=== PATIENT | female | born 1950 | race Caucasian/White ===

== ENCOUNTER 2016-12-03 03:47 | Emergency (ER) | payer OTHER ==
[~2016-12-03] VITALS: Ht 165.1 cm; Wt 100.0 kg
[2016-12-03] MEDS ORDERED: SERTRALINE HCL100 MG PO (03:55)
[2016-12-03] MEDS ORDERED: OMEPRAZOLE20 MG PO (03:55)
[2016-12-03] MEDS ORDERED: DICLOFENAC SODI75 MG PO (03:55)
[2016-12-03] MEDS ORDERED: TRAMADOL HCL50 MG PO (03:56)
[2016-12-03] MEDS ORDERED: LO-DOSE ASPIRIN81 M1 PO (03:56)
[2016-12-03] MEDS ORDERED: CRESTOR40 MG PO (03:57)
[2016-12-03] MEDS ORDERED: GABAPENTIN300 MG PO (03:57)
[2016-12-03] MEDS ORDERED: PERCOCET 5/31 TABLET PO (04:18)
[2016-12-03 04:43] VITALS: BP 167/81
== END 2016-12-03 04:44 | disposition home or self-care (01) ==
LOC: EXP 03:47 → EME 03:47 → EXP 04:44
DX: M25.562 Pain in left knee (principal); G89.29 Other chronic pain; I10 Essential (primary) hypertension; Z79.82 Long term (current) use of aspirin
CPT/HCPCS: 73564; 99281; 99284; J1885

== ENCOUNTER 2017-05-05 14:48 | Emergency (ER) | payer OTHER ==
[~2017-05-05] VITALS: Ht 152.4 cm; Wt 88.2 kg
[~2017-05-05 14:48] MED LIST: CRESTOR40 MG PO; DICLOFENAC SODI75 MG PO; GABAPENTIN300 MG PO; LO-DOSE ASPIRIN81 M1 PO; OMEPRAZOLE20 MG PO; PERCOCET 5/31 TABLET PO; SERTRALINE HCL100 MG PO; TRAMADOL HCL50 MG PO
[2017-05-05 15:59] LABS: HEMATOCRIT 34.5 % (36.0-46.0); HEMOGLOBIN 11.2 G/DL (11.9-15.5); MCH 25.6 PG (29.0-34.0); MCHC 32.5 G/DL (30.0-36.0); MCV 78.9 FL (83-99); PLATELET COUNT 220 K/uL (156-360); RBC DIS.WIDTH-CV 16.7 % (11.8-14.6); RBC DIS.WIDTH-SD 47.8 % (39-53); RED BLOOD COUNT 4.37 M/uL (3.80-5.20); WHITE BLOOD COUNT 5.1 K/uL (4.1-10.2)
[2017-05-05 16:11] LABS: ALBUMIN 4.2 g/dL (3.2-4.8)
[2017-05-05 16:12] LABS: CHLORIDE 106 mEq/L (99-109); POTASSIUM 3.4 mEq/L (3.7-5.4); SODIUM 140 mEq/L (136-147)
[2017-05-05 16:14] LABS: GLUCOSE 128 mg/dL (70-99); TOTAL PROTEIN 6.8 g/dL (6.4-8.3)
[2017-05-05 16:16] LABS: TOTAL BILIRUBIN 0.2 mg/dL (0.0-1.0)
[2017-05-05 16:17] LABS: ALKALINE PHOSPHATASE 95 IU/L (3-129)
[2017-05-05 16:18] LABS: CREATININE 0.9 mg/dL (0.6-1.3); GFR ESTIMATE (CALCULATED) > 59 mL/min/
[2017-05-05 16:19] LABS: AST (GOT) 19 IU/L (2-34); UREA NITROGEN (BUN) 9 mg/dL (9-23)
[2017-05-05 16:20] LABS: ALT (GPT) 16 IU/L (3-49)
[2017-05-05 16:21] LABS: LIPASE 12 U/L (1.0-51.0)
[2017-05-05 18:24] LABS: APPEARANCE CLOUDY ((CLEAR)); BILIRUBIN NEGATIVE; BLOOD NEGATIVE; GLUCOSE (STRIP) NEGATIVE; KETONES NEGATIVE; LEUKOCYTES LARGE; NITRITE NEGATIVE; PROTEIN (STRIP) 100; SPECIFIC GRAVITY 1.024 (1.000-1.030); UROBILINOGEN 0.2 MG/DL (0.2-1.0)
[2017-05-05 18:29] LABS: COLOR YELLOW ((YELLOW))
[2017-05-05 18:36] LABS: AMORPHOUS URATES CRYSTALS 2+; BACTERIA 1+ /HPF; EPITHELIAL CELLS 2+ /HPF; FINE GRANULAR CASTS 0-5 /LPF; HYALINE CASTS 0-5 /LPF; MUCUS 2+ /LPF; RED BLOOD CELLS RARE /HPF (0-5); UCUL ADDED? YES; WHITE BLOOD CELLS 30-40 /HPF (0-5)
[2017-05-05] MEDS ORDERED: ZOFRAN ODT4 MG PO (19:21)
[2017-05-05 19:41] VITALS: BP 102/74
== END 2017-05-05 19:42 | disposition home or self-care (01) ==
LOC: EME 14:48
DX: B34.9 Viral infection, unspecified (principal); K21.9 Gastro-esophageal reflux disease without esophagitis; F32.9 Major depressive disorder, single episode, unspecified; F41.9 Anxiety disorder, unspecified; Z86.73 Personal history of transient ischemic attack (TIA), and cerebral infarction without residual deficits; Z79.82 Long term (current) use of aspirin
CPT/HCPCS: 71046; 80053; 81003; 83690; 85027; 87077; 87086; 87186